=== PATIENT | female | born 1970 | race Caucasian/White ===

== ENCOUNTER 2018-08-21 09:13 | Emergency (ER) | payer OTHER ==
[~2018-08-21] VITALS: Ht 157.5 cm; Wt 80.0 kg
[2018-08-21 09:37] VITALS: Ht 157.5 cm; Wt 80.0 kg
[2018-08-21] MEDS ORDERED: SODIUM CHLORIDE 0.9% 1L BAG IV* STA (09:50)
[2018-08-21] MEDS ORDERED: ACETAMINOPHEN 325 MG TAB PO STA (09:50)
[2018-08-21] MEDS ORDERED: KETOROLAC 30 MG INJ IV STA (10:27)
[2018-08-21] MEDS ORDERED: DEXAMETHASONE 10 MG/ML 1 ML INJ IV ONE (10:30)
[2018-08-21] MEDS ORDERED: AZITHROMYCIN 500MG/NS (PMX) 250 ML IV STA (10:30)
[2018-08-21] MEDS ORDERED: ACETAMINOPHEN 500 MG TAB PO STA (12:19)
[2018-08-21] MEDS ORDERED: IBUPROFEN 800 MG TAB PO ONE (12:30)
[2018-08-21] MEDS ORDERED: AZIT500T3 PO (12:45)
[2018-08-21] MEDS ORDERED: ACET500C5 PO (12:45)
[2018-08-21] MEDS ORDERED: IBUP800T48 PO (12:45)
--- NOTE | 2018-08-21 12:52 | ERD ---
ER Documentation Chief Complaint Chief Complaint BACK AND BODY PAIN, THROAT PAIN; FEVER HPI This is a 48-year-old female with no past medical history. For the past 24 hours she indicates that she has been having a sore throat. This is progressively worsened. She is had a tactile fever with shaking and chills no antipyretics were taken prior to arrival. The patient indicates that she awoke this morning with generalized myalgias fever shaking and chills. She felt that there is pain throughout her entire body. The patient states she has had sick contacts with small kids. She denies any shortness of breath at rest or exert ion. She has no chest pain or pressure. She denies a headache. She denies any neck pain. She denies any swelling of her lower extremities. ROS All systems reviewed and are negative except as per history of present illness. Medications Home Meds Active Scripts Azithromycin* (Zithromax*) 500 Mg Tablet, 250 MG PO DAILY for 4 Days, TAB Prov:WILLIAMS HARDING MD 08/21/18 Ibuprofen* (Motrin*) 800 Mg Tab, 800 MG PO Q6H PRN for PAIN AND OR ELEVATED TEMP, #30 TAB Prov:WILLIAMS HARDING MD 08/21/18 Acetaminophen* (Tylophen*) 500 Mg Capsule, 2 CAP PO Q8H PRN for PAIN AND OR ELEVATED TEMP, #20 CAP Prov:WILLIAMS HARDING MD 08/21/18 Allergies Allergies: Coded Allergies: No Known Allergy (Unverified , 08/21/18) PMhx/Soc History of Surgery: Yes (GALLBLADDER) Anesthesia Reaction: No Hx Neurological Disorder: No Hx Respiratory Disorders: No Hx Cardiac Disorders: No Hx Psychiatric Problems: No Hx Miscellaneous Medical Probl: No Hx Alcohol Use: No Hx Substance Use: No Hx Tobacco Use: No Smoking Status: Never smoker Physical Exam Vitals Vital Signs Date Temp Pulse Resp B/P (MAP) Pulse Ox O2 O2 Flow FiO2 Time Delivery Rate 08/21/18 101.0 10:17 08/21/18 101.6 116 26 144/81 96 09:37 (102) Physical Exam Constitutional:Well-developed. Well-nourished. HEENT:Normocephalic. Atraumatic.Pupils were equal round reactive to light. Dry mucous membranes.erythremia of both tonsils with tonsillar exudates on the left. Uvula midline. Left anterior cervical lymphadenopathy which was tender. No brawny induration. No trismus. No stridor. Neck: No nuchal rigidity. No lymphadenopathy. No posterior cervical spine tenderness or step-offs. Respiratory: Not using accessory muscles of respiration.Lungs were clear to auscultation bilaterally. No rhonchi. No rales. No wheezing. Cardiovascular: Regular rate regular rhythm.No murmurs. No rubs were appreciated.S1, S2 normal. Distal pulses are palpable 2+ bilaterally. GI: Abdomen was soft. Nontender. Non Distended. No pulsatile abdominal masses or bruits. No rebound. No guarding. Bowel sounds were present and normal. Muscle skeletal: Full range of motion of both the upper and lower extremities bilaterally.Normal muscle tone.No assymetrical calf tenderness or swelling. Skin: No petechia, no purpura. No lesions on the palms or the soles of the feet. No maculopapular rash. NEURO: Patient was alert, awake, orientated x3.No facial droop. Gait observed and normal with no ataxia.Speech had regular rate and rhythm. No focal neurological deficits. Result Diagram: 08/21/1848 08/21/18 0948 Results 24 hrs Laboratory Tests Test 08/21/18 09:48 08/21/18 10:00 08/21/18 10:12 08/21/18 10:21 White Blood Count 12.1 10^3/ul Red Blood Count 4.35 10^6/ul Hemoglobin 13.2 g/dl Hematocrit 39.6 % Mean Corpuscular 91.0 fl Volume Mean Corpuscular 30.3 pg Hemoglobin Mean Corpuscular 33.3 g/dl Hemoglobin Concen t Red Cell 12.3 % Distribution Width Platelet Count 216 10^3/UL Mean Platelet 9.8 fl Volume Immature 0.300 % Granulocytes % Neutrophils % 84.5 % Lymphocytes % 9.3 % Monocytes % 4.5 % Eosinophils % 1.2 % Basophils % 0.2 % Nucleated Red 0.0 /100WBC Blood Cells % Immature 0.040 10^3/ul Granulocytes # Neutrophils # 10.2 10^3/ul Lymphocytes # 1.1 10^3/ul Monocytes # 0.5 10^3/ul Eosinophils # 0.1 10^3/ul Basophils # 0.0 10^3/ul Nucleated Red 0.0 10^3/ul Blood Cells # Prothrombin Time 12.5 Sec Prothrombin Time 1.0 Ratio INR International 0.92 Normalized Ratio Activated 29.4 Sec Partial Thrombopl ast Time Sodium Level 140 mmol/L Potassium Level 3.9 mmol/L Chloride Level 103 mmol/L Carbon Dioxide 27 mmol/L Level Anion Gap 10 Blood Urea 16 mg/dl Nitrogen Creatinine 0.88 mg/dl Est Glomerular > 60 mL/min Filtrat Rate mL/min Glucose Level 142 mg/dl Calcium Level 9.3 mg/dl Total Bilirubin 1.4 mg/dl Direct Bilirubin 0.00 mg/dl Indirect 1.4 mg/dl Bilirubin Aspartate Amino 17 IU/L Transf (AST/SGOT) Alanine 20 IU/L Aminotransferase (ALT/SGPT) Alkaline 109 IU/L Phosphatase Troponin I < 0.012 ng/ml Total Protein 8.6 g/dl Albumin 4.5 g/dl Globulin 4.10 g/dl Albumin/Globulin 1.09 Ratio Amylase Level 105 U/L Lipase 124 U/L Urine Color STRAW Urine Clarity CLEAR Urine pH 7.0 Urine Specific 1.008 [place] Urine Ketones TRACE mg/dL Urine Nitrite NEGATIVE mg/dL Urine Bilirubin NEGATIVE mg/dL Urine NEGATIVE mg/dL Urobilinogen Urine Leukocyte NEGATIVE Nathen/ul Esterase Urine Microscopic 34 /HPF RBC Urine Microscopic 1 /HPF WBC Urine Squamous FEW /HPF Epithelial Cells Urine Bacteria FEW /HPF Urine Hemoglobin 3+ mg/dL Urine Glucose NEGATIVE mg/dL Urine Total NEGATIVE mg/dl Protein POC Venous 1.2 mmol/L Lactate POC Beta HCG, NEGATIVE Qualitative Current Medications Medications Dose Sig/Eitan Start Time Status Last (Trade) Ordered Route PRN Stop Time Admin Dose Reason Admin Sodium 2,400 ml BOLUS OVER 2 08/21/18 DC 08/21/18 Chloride HOURS STAT 09:50 10:17 (NS) IV* 08/21/18 09:53 650 mg ONCE STAT 08/21/18 DC 08/21/18 Acetaminophen PO 09:50 10:17 (Tylenol 08/21/18 09:53 Tab) Ketorolac 30 mg ONCE STAT 08/21/18 DC 08/21/18 Tromethamine IV 10:27 10:43 (Toradol) 08/21/18 10:32 10 mg ONCE ONCE 08/21/18 DC 08/21/18 Dexamethasone IV 10:30 10:43 (Decadron) 08/21/18 10:31 Azithromycin 250 ml @ ONCE STAT 08/21/18 DC 08/21/18 250 mls/hr IV 10:30 10:43 08/21/18 11:29 Ibuprofen 800 mg ONCE ONCE 08/21/18 DC 08/21/18 (Motrin) PO 12:30 12:46 08/21/18 12:31 1,000 mg ONCE STAT 08/21/18 DC 08/21/18 Acetaminophen PO 12: 12:46 (Tylenol 08/21/18 12:23 Tab) Procedures/MDM This is a 48-year-old female that presented to the emergency department Sirs criteria. Sepsis was called however the patient's lactic acid was normal. At this time we cancel code sepsis been patient did receive a 30 cc/kg bolus of normal saline. She was also given antipyretics. I administered IV azithr omycin. I felt the patient symptoms are likely result of a pharyngitis. However rapid strep was negative. I also indicated to the patient that it could be a viral pharyngitis but she did state that she would prefer a dose of antibiotics as she did have sick contacts recently with a child with similar symptoms. 12 Lead EKG tracing ordered and reviewed by myself showed: bpm and no arrhythmia. CO interval normal. QRS duration normal. No ST segment elevation No ST segment depression. No changes consistent with acute ischemia. Chest radiograph showed no evidence of pneumonia. The patient no severe left leg abnormalities. Again the patient's lactic acid was within normal limits. The patient received further antipyretics. She was able to tolerate oral intake. She stated her symptoms had significantly improved. She was given IV Toradol. The patient was discharged home in fair condition. They were instructed to return to the emergency department at any time if there was any worsening of their condition. The patient stated they would follow up with their PCP in the next 24-48 hours to initiate a suitable medication regimen under the care of their PCP as well as to allow their PCP to monitor any drug reactions. The patient was discharged home with prescriptions after they gave informed consent to the new medication. They were also fully informed by myself on the adverse effects and adverse drug interactions in order to provide adequate safeguards to prevent possible adverse reactions to medications. Departure Diagnosis: Primary Impression: Pharyngitis Pharyngitis/tonsillitis etiology: unspecified etiology Qualified Codes: J02.9 - Acute pharyngitis, unspecified Condition: Fair Patient Instructions: Fever Control (Adult), Pharyngitis, Viral WILLIAMS HARDING MD August 21, 2018 12:52
[2018-08-21 13:31] VITALS: BP 134/85; PULSE 66; RESP 18
== END 2018-08-21 13:33 | disposition home or self-care (01) ==
LOC: E/R 09:13
DX: J02.9 Acute pharyngitis, unspecified (principal); R06.02 Shortness of breath
CPT/HCPCS: 71045; 80053; 81001; 81025; 82150; 83605; 83690; 84484; 85025; 85610; 85730; 87040; 87086; 87400; 87880; 93005; J0456; J1100; J1885; J7030; Z7610; 36415; 96374; 96375